=== PATIENT | male | born 1995 | race African-American/Black ===

== ENCOUNTER 2020-12-26 03:34 | Emergency (ER) | payer OTHER ==
--- NOTE | 2020-12-26 03:56 | EDM.PDOC ---
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 Patient has no complaints at this time. ED ROS GENERAL - Review of Systems Review Of Systems: See Below Constitutional: Reports: No Symptoms ED EXAM, GENERAL - Physical Exam Exam: See Below Exam Limited By: No Limitations General Appearance: Other (His blood pressure is noted to be a little elevated he is advised to have this followed up) Course - Vital Signs Last Recorded V/S: Last Vital Signs Temp 36.9 C 12/26/20 03:40 Pulse 91 12/26/20 03:40 Resp 18 12/26/20 03:40 BP 171/92 H 12/26/20 03:40 Pulse Ox 96 12/26/20 03:40 - Orders/Labs/Meds Orders: Active Orders 24 hr Category Date Time Status DRUG SCREEN, URINE [URCHEM] Stat Lab 12/26/20 03:52 Received ETOH [ETHANOL BLOOD MEDICAL] [CHEM] Stat Lab 12/26/20 03:51 Received Departure - Departure Time of Disposition: 04:07 Disposition: Home, Self-Care 01 Clinical Impression: Laboratory examination - Discharge Information Referrals: PCP,None [Primary Care Provider] - Forms: ED Department Discharge Additional Instructions: Keep a close eye on your blood pressure. Stay safe! Sepsis Event Note (ED) - Evaluation Sepsis Screening Result: No Definite Risk - Focused Exam Vital Signs: Vital Signs Temp Pulse Resp BP Pulse Ox 12/26/20 03:40 36.9 C 91 18 171/92 H 96 - My Orders Last 24 Hours: My Active Orders 12/26/20 03:51 ETOH [ETHANOL BLOOD MEDICAL] [CHEM] Stat 12/26/20 03:52 DRUG SCREEN, URINE [URCHEM] Stat - Assessment/Plan Last 24 Hours: My Active Orders 12/26/20 03:51 ETOH [ETHANOL BLOOD MEDICAL] [CHEM] Stat 12/26/20 03:52 DRUG SCREEN, URINE [URCHEM] Stat
== END 2020-12-26 04:23 | disposition home or self-care (01) ==
LOC: JD.ED 03:34
DX: Z00.00 Encounter for general adult medical examination without abnormal findings (principal)
CPT/HCPCS: 36415; 80306; 80307; 99282